=== PATIENT | male | born 1950 | race Caucasian/White ===

== ENCOUNTER 2016-11-25 01:50 | Emergency (ER) | payer OTHER ==
[2016-11-25 02:16] VITALS: RESP 16
[2016-11-25] MEDS ORDERED: FLUORESCEIN SODIUM 1 MG STRIP OP ONE ×2 (03:32→03:33)
[2016-11-25] MEDS ORDERED: TETRACAINE 0.5% 15 ML OPHT.BTL LEFTEYE ONE (03:32)
[2016-11-25] MEDS ORDERED: PROPARACAINE 0.5% 15 ML OPHT DROP ONE (03:33)
[2016-11-25] MEDS ORDERED: PROPARACAINE 0.5% 15 ML OPHT DROP RTEYE ONE (03:35)
--- NOTE | 2016-11-25 04:25 | EDPHY ---
H & P Stated Complaint: eye pain s/p cataract surgery Time Seen by Provider: 11/25/16 03:20 HPI/ROS: HPI The patient presents with left eye pain which has been present for the last 1 day and is getting progressively worse. It is a dull pain that does not radiate. It is associated with vision changes which he describes as a film of his entire visual field. He also is experiencing photophobia. He has taken Tylenol for the pain without any improvement. He is 1 week status post a operation for cataract. He is supposed to follow-up today with Dr. Clemente for another operation. He has had difficulty with dilating eyedrops, they are not working for him. He did take a dose of acetazolamide prior to arriving and this is improved his symptoms somewhat.. REVIEW OF SYSTEMS Constitutional: No fever, no chills. Eyes: No discharge. ENT: No sore throat. Cardiovascular: No chest pain, no palpitations. Respiratory: No cough, no shortness of breath. Gastrointestinal: No abdominal pain, no vomiting. Genitourinary: No hematuria. Musculoskeletal: No back pain. Skin: No rashes. Neurological: No headache. PMHx: Recent cataract operation 1 week ago PHYSICAL General Appearance: Alert, no distress Eyes: Pupils equal and round no pallor or injection EYE EXAM left eye Visual Acuity: noted from Nurse's notes. Pupils: Left pupil is 3 mm and minimally reactive EOMI Skin: no proptosis, no periorbital erythema or swelling, no vesicles Conjunctivae: diffusely injected, no discharge Anterior chamber:normal, no hyphema or hypopyon Juan-Pen pressures are 44, 44, 46 ENT, Mouth: Mucous membranes moist Respiratory: Breathing comfortably Neurological: A&O, moves all extremities Skin: Warm and dry, no rashes Musculoskeletal: Neck is supple non tender Extremities: symmetrical, full range of motion Psychiatric: Patient is oriented X 3, there is no agitation Source: Patient Exam Limitations: No limitations - Personal History Current Tetanus/Diphtheria Vaccine: No Current Tetanus Diphtheria and Acellular Pertussis (TDAP): No - Medical/Surgical History Hx Asthma: No Hx Chronic Respiratory Disease: No Hx Diabetes: No Hx Cardiac Disease: No Hx Renal Disease: No Hx Cirrhosis: No Hx Alcoholism: No Hx HIV/AIDS: No Hx Splenectomy or Spleen Trauma: No Other PMH: cataracts, colorectomy - Social History Smoking Status: Current every day smoker Constitutional: Initial Vital Signs Temperature (C) 36.3 C 11/25/16 02:12 Heart Rate 52 L 11/25/16 02:12 Respiratory Rate 16 11/25/16 02:12 Blood Pressure 120/75 11/25/16 02:12 O2 Sat (%) 95 11/25/16 02:12 O2 Delivery Mode Room Air Allergies/Adverse Reactions: No Known Allergies Allergy (Unverified 11/25/16 02:11) Medical Decision Making - Diagnostics Imaging Results: Bedside ocular Ultrasound- performed and interpreted by me. Indication: Eye pain with changes in vision Findings: No retinal detachment, no vitreous detachment, foreign body is present in the vitreous humor Impression: No retinal detachment Differential Diagnosis: This is a 66-year-old male who presents with eye pain, changes in vision, photophobia after cataract surgery performed 1 week ago. Differential diagnosis includes narrow angle glaucoma, bacterial endophthalmitis , retinal detachment. In the Emergency Room Juan-Pen pressures were checked and were elevated in the 40s. Bedside ocular ultrasound was unremarkable for retinal detachment. 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 I have discussed this with the patient and he is in agreement with the plan and will be discharged from the emergency room. - Data Points Medications Given: Discontinued Medications Hydrocodone Bitart/Acetaminophen ([place] 5/325mg Prepack#6) 1 btl TAKEHOME EDNOW ONE Stop: 11/25/16 04:32 Last Admin: 11/25/16 04:43 Dose: 1 btl Fluorescein Sodium ([id number]) 1 mg OP EDNOW ONE Stop: 11/25/16 03:33 Last Admin: 11/25/16 03:59 Dose: 1 mg Proparacaine HCl (Alcaine 0.5%) 1 drops RTEYE ONCE ONE Stop: 11/25/16 03:36 Last Admin: 11/25/16 03:58 Dose: 1 drop Tetracaine HCl (Tetracaine 0.5%) 1 drops LEFTEYE ONCE ONE Stop: 11/25/16 03:33 Last Admin: 06/15/17 03:36 Dose: Not Given Departure - Departure Disposition: Home, Routine, Self-Care Clinical Impression: Cataract and glaucoma syndrome Condition: Good Instructions: Hydrocodone/Acetaminophen (By mouth), Cataracts (ED) Additional Instructions: Please follow up with Dr. Balckwell's office this morning. You should go there at 9:00 a.m.. You should take the Pred Forte drops every 1 hour, you should use the Diamox pill at 5:30 a.m. with a small sip of water, you should use the combo than drop 3 times a day. Referrals: Liz Blackwell MD [Non Staff Provider (MD)] - As per Instructions
[2016-11-25] MEDS ORDERED: HYDROCOD/APAP 5/325 PREPACK#6 BTL TAKEHOME ONE (04:31)
[2016-11-25 04:44] VITALS: BP 118/72; PULSE 60; TEMP 98.1; O2SAT 97
== END 2016-11-25 04:45 | disposition home or self-care (01) ==
DX: H26.9 Unspecified cataract (principal); H40.9 Unspecified glaucoma; F17.200 Nicotine dependence, unspecified, uncomplicated